=== PATIENT | male | born 1970 | race Caucasian/White ===

== ENCOUNTER 2017-07-25 08:33 | Emergency (ER) | payer BC ==
--- NOTE | 2017-07-25 08:50 | ED Physician Documentation ---
PD HPI UPPER EXT INJURY - Stated complaint Stated Complaint: L ARM PX - History obtained from History obtained from: Patient - History of Present Illness Location: Left, Shoulder Type of injury: Twist Where injury occurred: Work Timing - onset: Yesterday Timing - duration: Hours Timing - details: Abrupt onset, Still present Improved by: Rest, Immobilization Worsened by: Moving, Palpating Associated symptoms: No: Weakness, Numbness, Tingling, Swelling Similar symptoms before: Diagnosis (shoulder dislocation) Recently seen: Not recently seen - Additonal information Additional information: Previously well 47-year-old male with a prior history of right shoulder dislocation Was working underneath a car yesterday when he rolled onto his left shoulder and it spontaneously dislocated he was able to relocate it now feels that if he moves of the arm a certain way this will dislocate again. He is otherwise not having significant pain and is able to move her shoulder in a fair range of motion. Review of Systems Constitutional: denies: Fever Eyes: denies: Decreased vision Ears: denies: Ear pain Nose: denies: Congestion Throat: denies: Sore throat Cardiac: denies: Chest pain / pressure Respiratory: denies: Dyspnea, Cough GI: denies: Nausea, Vomiting : denies: Dysuria, Frequency Skin: denies: Rash Musculoskeletal: reports: Joint pain. denies: Neck pain, Back pain, Joint swelling Neurologic: denies: Generalized weakness, Focal weakness, Numbness PD PAST MEDICAL HISTORY - Present Medications Home Medications: Ambulatory Orders Medication Instructions Recorded Confirmed Esomeprazole Magnesium [Nexium] 07/25/17 - Allergies Allergies/Adverse Reactions: Allergies Allergy/AdvReac Type Severity Reaction Status Date / Time aspirin Allergy Unknown Verified 07/25/17 08:51 PD ED PE NORMAL - Vitals Vital signs reviewed: Yes - General General: Alert and oriented X 3, No acute distress, Well developed/nourished - HEENT HEENT: Atraumatic, PERRL - Neck Neck: Supple, no meningeal sign - Respiratory Respiratory: No respiratory distress - Derm Derm: Normal color, Warm and dry, No rash - Extremities Extremities: No deformity, No edema, Other (The left shoulder is non-tender and he is able to hold it in abduction. ROM is not restricted and there is no deformity. Distal n/v is intact. ) - Neuro Neuro: Alert and oriented X 3, No motor deficit, No sensory deficit Eye Opening: Spontaneous Motor: Obeys Commands Verbal: Oriented GCS Score: 15 - Psych Psych: Normal mood, Normal affect Results - Rads (name of study) left shoulder Radiology: Prelim report reviewed (Impression: 1. Normal alignment of the shoulder without acute fracture or dislocation.2. Moderate AC joint osteoarthritis.), EMP read indepedently, See rad report PD MEDICAL DECISION MAKING - ED course Complexity details: reviewed results, re-evaluated patient, considered differential, d/w patient ED course: 47-year-old male with a spontaneously reduced shoulder dislocation has some continued pain and feeling of the shoulder will come out frequently. He is placed into a sling and swath shoulder x-rays with evidence of some osteoarthritis. Departure - Departure Disposition: 01 Home, Self Care Clinical Impression: Spontaneous dislocation of shoulder Qualifiers: Laterality: left Qualified Code(s): M24.312 - Pathological dislocation of left shoulder, not elsewhere classified Condition: Stable Instructions: Instability Shoulder, ED Dislocation Shoulder Redu Follow-Up: Karen Shin MD [Primary Care Provider] - [facility] [Provider Group]
[2017-07-25 08:51] VITALS: BP 131/93
--- NOTE | 2017-07-25 09:18 | XRAY Report ---
EXAM: LEFT SHOULDER RADIOGRAPHY EXAM DATE: 07/25/2017 09:03 AM. CLINICAL HISTORY: Reduced dislocation. COMPARISON: None. TECHNIQUE: 3 views. FINDINGS: Bones: No fracture lines are seen nor focal abnormal osseous lesions. Joints: Glenohumeral and a. C. Alignment is normal. Moderate AC joint space narrowing with osteophyte s noted. Soft tissues: The visualized hemithorax is unremarkable. No soft tissue swelling. IMPRESSION: 1. Normal alignment of the shoulder without acute fracture or dislocation. 2. Moderate AC joint osteoarthritis. [facility] Referring Provider Line: [phone] SITE ID: [id number]
== END 2017-07-25 09:49 | disposition home or self-care (01) ==
LOC: ED 08:33
DX: M24.312 Pathological dislocation of left shoulder, not elsewhere classified (principal)
CPT/HCPCS: 99282; 99283

== ENCOUNTER 2019-07-13 11:08 | Outpatient (CLI) | payer BC | END 2019-07-13 11:09 | disposition home or self-care (01) | LOC: COV 11:08 | PROVIDERS: ATTEND Family Medicine | DX: R05 Cough (principal); R50.9 Fever, unspecified | CPT/HCPCS: 81599 ==